=== PATIENT | female | born 1975 | race Caucasian/White ===

== ENCOUNTER 2021-01-16 19:17 | Emergency (ER) | payer MEDICAID ==
[~2021-01-16] VITALS: Ht 160 cm; Wt 67.3 kg
[2021-01-16] MEDS ORDERED: ONDANSETRON HCL 4 MG TABLET PO ONE (21:00)
[2021-01-16] MEDS ORDERED: IBUPROFEN 600 MG TABLET PO ONE (21:00)
[2021-01-16 21:13] LABS: APPEARANCE,URINE TURBID (CLEAR); BILIRUBIN,URINE NEGATIVE (NEGATIVE); GLUCOSE, URINE (UA) 250 mg/dL (NEGATIVE); KETONES,URINE NEGATIVE (NEGATIVE); LEUKOCYTE ESTERASE ,URINE MODERATE (NEGATIVE); NITRATE,URINE NEGATIVE (NEGATIVE); OCCULT BLOOD,URINE LARGE (NEGATIVE); PH,URINE 6.5 (5.0-8.0); PROTEIN,URINE POS 1+ (NEGATIVE); UROBILINOGEN,URINE 0.2 mg/dL (<=1.0)
[2021-01-16 21:24] LABS: BACTERIA,URINE Few /HPF (None Seen); RBC,URINE 51-100 /HPF (0-2); SQUAMOUS EPITHELIAL CELL,UR Moderate /LPF (None Seen)
[2021-01-16 21:45] VITALS: BP 120/68
== END 2021-01-16 21:30 | disposition home or self-care (01) ==
LOC: EMS 19:19
DX: N39.0 Urinary tract infection, site not specified (principal)
CPT/HCPCS: 81001; 81002; 81025; 87086; 99283; Q0162